=== PATIENT | male | born 1980 | race Caucasian/White ===

== ENCOUNTER 2018-08-13 06:52 | Day surgery (SDC) | payer BC ==
[~2018-08-13] VITALS: Ht 180.3 cm; Wt 139.0 kg
[~2018-08-13 06:52] MED LIST: LIDOCAINE 1%-EPI 1:100K, 20ML ONE; ROPIvacaine/PF 0.5%, 30 ML ONE
[2018-08-13] MEDS ORDERED: MIDAZOLAM 1 MG/ML, 2ML ONE (07:22)
[2018-08-13] MEDS ORDERED: OMEP-110 PO (07:24)
[2018-08-13] MEDS ORDERED: FLUO10TA PO (07:24)
[2018-08-13] MEDS ORDERED: LACTATED RINGERS 1,000 ML IV SCH (07:24)
[2018-08-13 07:25] VITALS: BP 125/85
[2018-08-13] MEDS ORDERED: GABAPENTIN 300 MG CAPSULE PO ONE (07:30)
[2018-08-13] MEDS ORDERED: ACETAMINOPHEN 500 MG TABLET PO ONE (07:30)
[2018-08-13] MEDS ORDERED: FENTANYL PF 250 MCG/5ML ONE (07:50)
[2018-08-13] MEDS ORDERED: PROPOFOL 50 ML ONE (08:46)
[2018-08-13] MEDS ORDERED: PROCHLORPERAZINE 25 MG SUPP PR PRN (09:00)
[2018-08-13] MEDS ORDERED: HYDROcodone/APAP 7.5-325MG/15ML UDC PO PRN (09:00)
[2018-08-13] MEDS ORDERED: ONDANSETRON ODT 8 MG PO PRN (09:00)
[2018-08-13] MEDS ORDERED: MECLIZINE CHEWABLE 25 MG TAB PO PRN (09:00)
[2018-08-13] MEDS ORDERED: PROMETHAZINE 25 MG/ML, 1ML IV PRN (09:00)
[2018-08-13] MEDS ORDERED: LORazepam 2 MG/ML, 1ML IVPush PRN (09:00)
[2018-08-13] MEDS ORDERED: HYDROmorphone 2 MG/ML, 1ML IVPush PRN (09:00)
[2018-08-13] MEDS ORDERED: MEPERIDINE/PF 25MG/0.5ML IVPush PRN (09:00)
[2018-08-13] MEDS ORDERED: ONDANSETRON 2MG/ML, 2ML IV PRN (09:00)
[2018-08-13] MEDS ORDERED: DEXAMETHASONE 4 MG/ML, 1ML ONE (09:12)
[2018-08-13] MEDS ORDERED: ONDANSETRON 2MG/ML, 2ML ONE (09:12)
[2018-08-13] MEDS ORDERED: CEFAZOLIN 1,000 MG ONE (09:12)
[2018-08-13] MEDS ORDERED: PROPOFOL 10 MG/ML, 20ML ONE (09:12)
[2018-08-13] MEDS ORDERED: FENTANYL PF 100 MCG/2ML ONE (10:30)
[2018-08-13] MEDS ORDERED: MEPERIDINE/PF 25MG/ML,1ML ONE (10:30)
[2018-08-13] MEDS: FENTANYL PF 100 MCG/2ML IV PRN ×3 (10:40→10:50)
[2018-08-13] MEDS ORDERED: HYDROcodone/APAP 7.5-325MG/15ML UDC ONE (10:52)
== END 2018-08-13 13:15 | disposition home or self-care (01) ==
LOC: OUT 06:52
PROVIDERS: ATTEND Orthopaedic Surgery
DX: S83.282A Other tear of lateral meniscus, current injury, left knee, initial encounter (principal); M22.42 Chondromalacia patellae, left knee; K21.9 Gastro-esophageal reflux disease without esophagitis; F32.9 Major depressive disorder, single episode, unspecified; Z72.89 Other problems related to lifestyle; Z79.899 Other long term (current) drug therapy; Z88.6 Allergy status to analgesic agent; Z87.891 Personal history of nicotine dependence; Z82.3 Family history of stroke; X58.XXXA Exposure to other specified factors, initial encounter; Y93.89 Activity, other specified; Y92.89 Other specified places as the place of occurrence of the external cause; Y99.8 Other external cause status
CPT/HCPCS: 27407; 27418; 27427; 29881; 64447; 73560; 76000; C1713; C1762; J0690; J1100; J2175; J2250; J2405; J2704; J2795; J3010; J3490; J7120

== ENCOUNTER → 2018-09-11 | Outpatient (CLI) | payer BC ==
[~2018-09-11] MED LIST changes: +FLUO10TA PO; -LIDOCAINE 1%-EPI 1:100K, 20ML ONE; +OMEP-110 PO; -ROPIvacaine/PF 0.5%, 30 ML ONE
== END | disposition home or self-care (01) ==
LOC: RAD 17:02
PROVIDERS: ATTEND Orthopaedic Surgery
DX: M79.662 Pain in left lower leg (principal)

== ENCOUNTER 2019-02-27 09:04 | Outpatient (CLI) | payer BC | END 2019-02-27 23:59 | disposition home or self-care (01) | LOC: STAR 09:04 | PROVIDERS: ATTEND Orthopaedic Surgery | DX: Z02.9 Encounter for administrative examinations, unspecified (principal) ==

== ENCOUNTER 2019-03-04 05:39 | Day surgery (SDC) | payer BC ==
[~2019-03-04] VITALS: Ht 180.3 cm; Wt 139.0 kg
[2019-03-04 06:09] VITALS: BP 134/91
[2019-03-04] MEDS ORDERED: LACTATED RINGERS 1,000 ML IV SCH (06:11)
[2019-03-04] MEDS ORDERED: BUPIVACAINE/PF 0.25% ONE (06:24)
[2019-03-04] MEDS ORDERED: MIDAZOLAM 1 MG/ML, 2ML ONE (06:24)
[2019-03-04] MEDS ORDERED: FENTANYL PF 250 MCG/5ML ONE (06:24)
[2019-03-04] MEDS ORDERED: LIDOCAINE/PF 1%-EPI 1:200K, 30 ML ONE (06:26)
[2019-03-04] MEDS ORDERED: ROPIvacaine/PF 0.5%, 30 ML ONE (06:26)
[2019-03-04] MEDS ORDERED: PROPOFOL 50 ML ONE (06:56)
[2019-03-04] MEDS ORDERED: HYDROmorphone 2 MG/ML, 1ML IVPush PRN (07:00)
[2019-03-04] MEDS ORDERED: ONDANSETRON ODT 8 MG PO PRN (07:00)
[2019-03-04] MEDS ORDERED: PROMETHAZINE 25 MG/ML, 1ML IM PRN (07:00)
[2019-03-04] MEDS ORDERED: PROMETHAZINE 25 MG/ML, 1ML IV PRN (07:00)
[2019-03-04] MEDS ORDERED: ONDANSETRON 2MG/ML, 2ML IV PRN (07:00)
[2019-03-04] MEDS ORDERED: GABAPENTIN 300 MG CAPSULE PO ONE (07:00)
[2019-03-04] MEDS ORDERED: ACETAMINOPHEN 500 MG TABLET PO ONE (07:00)
[2019-03-04] MEDS ORDERED: LORazepam 2 MG/ML, 1ML IVPush PRN (07:00)
[2019-03-04] MEDS ORDERED: HYDROcodone/APAP 7.5-325MG/15ML UDC PO PRN (07:00)
[2019-03-04] MEDS ORDERED: MEPERIDINE/PF 25MG/ML,1ML IVPush PRN (07:00)
[2019-03-04] MEDS ORDERED: PROPOFOL 10 MG/ML, 20ML ONE (07:26)
[2019-03-04] MEDS ORDERED: CEFAZOLIN 1,000 MG ONE (07:26)
[2019-03-04] MEDS ORDERED: DEXAMETHASONE 4 MG/ML, 1ML ONE (07:26)
[2019-03-04] MEDS ORDERED: ONDANSETRON 2MG/ML, 2ML ONE (07:26)
[2019-03-04] MEDS ORDERED: FENTANYL PF 100 MCG/2ML ONE (09:31)
[2019-03-04] MEDS ORDERED: HYDROcodone/APAP 7.5-325MG/15ML UDC ONE (09:31)
[2019-03-04] MEDS ORDERED: hydrALAzine 20 MG/ML, 1ML ONE (09:33)
[2019-03-04] MEDS: FENTANYL PF 100 MCG/2ML IV PRN ×3 (09:35→10:10)
[2019-03-04] MEDS ORDERED: hydrALAzine 20 MG/ML, 1ML IV PRN (10:00)
== END 2019-03-04 12:25 | disposition home or self-care (01) ==
LOC: OUT 05:39
PROVIDERS: ATTEND Orthopaedic Surgery
DX: M25.361 Other instability, right knee (principal); M22.01 Recurrent dislocation of patella, right knee; M22.41 Chondromalacia patellae, right knee; M65.861 Other synovitis and tenosynovitis, right lower leg; F32.9 Major depressive disorder, single episode, unspecified; Z79.899 Other long term (current) drug therapy; Z87.891 Personal history of nicotine dependence; Z88.5 Allergy status to narcotic agent; Z82.3 Family history of stroke
CPT/HCPCS: 27418; 27427; 29875; 64447; 73560; C1713; C1762; J0360; J0690; J1100; J2250; J2405; J2704; J2795; J3010; J3490; J7120; 76000